=== PATIENT | female | born 1990 | race American Indian/Alaskan Native ===

== ENCOUNTER 2017-01-26 18:47 | Emergency (ER) | payer SELFPAY ==
[2017-01-26] MEDS ORDERED: NORCO 7.5/325 PO ONE (20:49)
[2017-01-26] MEDS ORDERED: DELTASONE PO ONE (20:49)
--- NOTE | 2017-01-26 21:50 | Emergency Department Report ---
HPI - General Chief Complaint: Earache - HPI HPI: 26-year-old -[place] female comes with complaint of earache sore throat and left side of face hurts. Patient reports his this is a gone on for one week. She denies any fever chills no nausea no vomiting. She took ibuprofen did take some TheraFlu express Max for cough. ED Past Medical Hx - Past Medical History Previous Medical History?: No - Surgical History Past Surgical History?: No - Social History Smoking Status: Current Every Day Smoker Substance Use Type: None - Medications Home Medications: Home Medications Medication Instructions Recorded Confirmed Last Taken Type Amoxicillin [Amoxicillin TAB] 875 mg PO BID #20 tablet 01/26/17 Unknown Rx Ibuprofen [Motrin 800 MG tab] 800 mg PO Q8HR PRN #30 tablet 01/26/17 Unknown Rx ED Review of Systems ROS: Stated complaint: LEFT SIDE FACE HURTS Other details as noted in HPI Comment: All other systems reviewed and negative ENT: ear pain, throat pain Physical Exam - Physical Exam Vital Signs: Vital Signs 01/26/17 01/26/17 18:53 21:06 Temperature 98.7 F Pulse Rate 101 H Respiratory 18 20 Rate Blood Pressure 128/78 O2 Sat by Pulse 96 Oximetry Physical Exam: GENERAL: Alert and oriented x3, no apparent distress, Normal Gait, atraumatic. HEAD: Head is normocephalic and a-traumatic. EYES: Extra ocular muscles are intact. Pupils are equal, round, and reactive to light and accommodation. EARS: symetrical, atraumatic, non tender, ear canal clear and moderate cerumen, tympanic membrance non inflamed. gross auditory nml bilaterally. NOSE: Nose symetrical, Nontender,Nares appeared normal. MOUTH:Mouth is well hydrated and without lesions. Tonsils nonerythematous or swollen, Uvula midline, Tongue not elevated. Mucous membranes are moist. Posterior pharynx clear, + exudate - lesions. Patent airways. NECK: Supple. Non edematous, No carotid bruits. No lymphadenopathy or thyromegaly. LUNGS: Symetrical with respiration, No wheezing, no rales or crackles, CTAB. HEART: S1, S2 present, regular rate and rhythm without murmur, no rubs, no gallops. EXTREMITIES/MUSCULOSKELETAL: No cyanosis, clubbing, rash, lesions or edema. Full ROM bilaterally. UE/LE Pulses 2+ bilaterally. LE and UE 5+ strength bilaterally NEUROLOGIC: No focal Deficit, Cranial nerves II through XII are grossly intact. No loss of sensation, No facial droop, PSYCHIATRIC: Mood is congruent with affect, denies suicidal or homicidal ideations. SKIN: Warm and dry, No lesions, No ulceration or induration present ED Course Vital Signs 01/26/17 01/26/17 18:53 21:06 Temperature 98.7 F Pulse Rate 101 H Respiratory 18 20 Rate Blood Pressure 128/78 O2 Sat by Pulse 96 Oximetry ED Medical Decision Making - Medical Decision Making 26y/o Female with sorethroat. Strep test is negative This highly contagious. Ibuprofen 800 mg by mouth, prednisone 40 mg by mouth. Please take antibiotics as prescribed. Take pain medication as prescribed Follow-up through primary care provider if signs and symptoms does not improve. Critical care attestation.: If time is entered above; I have spent that time in minutes in the direct care of this critically ill patient, excluding procedure time. ED Disposition Clinical Impression: Sorethroat Disposition: DISCHARGED TO HOME OR SELFCARE Is pt being admited?: No Does the pt Need Aspirin: No Condition: Stable Instructions: Pharyngitis (ED) Additional Instructions: Take antibiotics as prescribed. Take ibuprofen as prescribed. If symptoms persists follow up with her primary care provider. Prescriptions: Amoxicillin [Amoxicillin TAB] 875 mg PO BID #20 tablet Ibuprofen [Motrin 800 MG tab] 800 mg PO Q8HR PRN #30 tablet PRN Reason: Pain Referrals: [facility] [Outside] - 3-5 Days Forms: Work/School Release Form(ED), Accompanied Note
[2017-01-26 22:04] VITALS: BP 122/72
== END 2017-01-26 22:25 | disposition home or self-care (01) ==
LOC: ED 18:47
DX: J02.9 Acute pharyngitis, unspecified (principal); F17.200 Nicotine dependence, unspecified, uncomplicated
CPT/HCPCS: 87116; 87430; 99282; J7512